=== PATIENT | female | born 1960 | race Hispanic/Latino ===

== ENCOUNTER → 2018-04-01 | Outpatient (CLI) | payer OTHER ==
--- NOTE | 2018-04-04 15:32 | Diagnostic Imaging Report ---
#[id number] - [id number] #BILATERAL DIGITAL DIAGNOSTIC MAMMOGRAM WITH CAD: 04/01/2018 Comparison is made to exams dated: 09/24/2017 mammogram, 01/28/2017 mammogram and 01/08/2017 mammogram - [facility]. Current study contains 8 films. There are scattered fibroglandular elements in both breasts. Current study was also evaluated with a Computer Aided Detection (CAD) system. The clusters of microcalcification in the left breast do not appear significantly changed. Again noted is bilateral vascular calcifications and a biopsy marker in the left breast. Stable calcification in the right breast again noted. IMPRESSION: PROBABLY BENIGN A follow-up left breast mammogram in 6 months is recommended to demonstrate stability. The patient has been or will be notified of the results. Dm Townsend Jr., D.O. cw/:04/01/2018 15:00:56 Fire Operations Forester: Isabelle FERMIN)(Yordan), [facility] letter sent: Followup Recommended Mammogram BI-RADS: 3 Probably benign
== END ==
LOC: MAMMO 09:41
PROVIDERS: ATTEND Internal Medicine
DX: N64.59 Other signs and symptoms in breast (principal)
CPT/HCPCS: 77066

== ENCOUNTER → 2018-05-20 | Emergency (ER) | payer OTHER ==
[~2018-05-20] VITALS: Ht 154.9 cm; Wt 74.8 kg
[~2018-05-20] MED LIST: ASPIRIN 81 MG CHEW TAB PO STA; BELLADONNA ALK/PHENOBARBITAL 5 ML UDC ONE; BELLADONNA ALK/PHENOBARBITAL 5 ML UDC PO ONE; MAGNESIUM/ALUMINUM/SIMETHICONE 30 ML UDC ONE; MAGNESIUM/ALUMINUM/SIMETHICONE 30 ML UDC PO ONE
[2018-05-20 18:56] LABS: BASOPHILS % 0.4 % (0.0-1.0); EOSINOPHILS # (AUTO) 0.2 (0.0-0.4); EOSINOPHILS % 2.9 % (0.0-6.0); HEMOGLOBIN 13.5 g/dL (12.0-16.0); LYMPHOCYTES # (AUTO) 3.5 (1.0-3.2); LYMPHOCYTES % 42.6 % (18.0-39.1); MEAN CORPUSCULAR HEMOGLOBIN 31.1 pg (28-32); MEAN CORPUSCULAR HGB CONC 33.8 g/dL (31-35); MEAN CORPUSCULAR VOLUME 92.2 fL (81-99); MONOCYTES # (AUTO) 0.6 (0.2-0.8); MONOCYTES % 7.5 % (4.4-11.3); NEUTROPHILS # (AUTO) 3.8 (2.1-6.9); NEUTROPHILS % 46.2 % (38.7-80.0); PLATELET COUNT 263 x10e3/uL (140-360); RED BLOOD COUNT 4.34 x10e6/uL (3.6-5.1); RED CELL DISTRIBUTION WIDTH 12.8 % (11.7-14.4)
[2018-05-20 19:04] LABS: CLARITY,URINE SL CLOUDY (CLEAR); COLOR,URINE YELLOW (YELLOW)
[2018-05-20 19:05] LABS: BILIRUBIN,URINE NEGATIVE (NEGATIVE); KETONES,URINE NEGATIVE (NEGATIVE); LEUKOCYTE ESTERASE ,URINE NEGATIVE (NEGATIVE); NITRITE,URINE NEGATIVE (NEGATIVE); PROTEIN,URINE DIPSTICK NEGATIVE (NEGATIVE); URINE UROBILINOGEN 0.2 mg/dL (0.2 - 1)
[2018-05-20 19:12] LABS: INR 1.02; PROTHROMBIN TIME 12.6 seconds (11.9-14.5)
[2018-05-20 19:13] LABS: PARTIAL THROMBOPLASTIN TIME 27.9 seconds (23.8-35.5)
[2018-05-20 19:14] LABS: EPITHELIAL CELLS,URINE RARE /LPF; RBC,URINE 0-5 /HPF (0-5)
[2018-05-20 19:16] LABS: ALANINE AMINOTRANSFERASE 42 IU/L (0-55); ALBUMIN 3.8 g/dL (3.5-5.0); ALBUMIN/GLOBULIN RATIO 1.1 (0.8-2.0); ALKALINE PHOSPHATASE 64 IU/L (40-150); BLOOD UREA NITROGEN 9 mg/dL (7-26); BUN/CREATININE RATIO 11 (6-25); CALCIUM 9.2 mg/dL (8.4-10.2); CARBON DIOXIDE 22 mmol/L (22-29); CHLORIDE 104 mmol/L (98-107); CREATINE KINASE 142 IU/L (29-168); CREATININE, SERUM 0.79 mg/dL (0.57-1.11); EST GLOMERULAR FILTRATION RATE > 60 ML/MIN (60-); GLUCOSE 103 mg/dL (74-118); SODIUM 138 mmol/L (136-145)
[2018-05-20 22:40] VITALS: BP 149/99
--- NOTE | 2018-05-20 22:44 | Diagnostic Imaging Report ---
EXAM: Chest x-ray, AP 1 view INDICATION: Chest pressure COMPARISON: None FINDINGS: LINES/TUBES: None LUNGS: No consolidations or edema. PLEURA: No effusions or pneumothorax. HEART AND MEDIASTINUM: Normal size and contour. BONES AND SOFT TISSUES: No acute findings. IMPRESSION: No acute thoracic abnormality. This study was originally dictated as a preliminary report May 20, 2018 at 9:56 PM secondary to technical problems transferring the image. Signed by: Dr. Roxi Watson M.D. on 05/20/2018 10:41 PM
== END | disposition home or self-care (01) ==
LOC: ER 18:14
DX: R07.89 Other chest pain (principal); R06.02 Shortness of breath; K21.9 Gastro-esophageal reflux disease without esophagitis
CPT/HCPCS: 36415; 71045; 80053; 81001; 82550; 82553; 83880; 84484; 85025; 85379; 85610; 85730; 93005; 99284

== ENCOUNTER → 2018-10-14 | Outpatient (CLI) | payer OTHER ==
--- NOTE | 2018-10-18 08:15 | Diagnostic Imaging Report ---
#[id number] - [id number] #UNILATERAL LEFT DIGITAL DIAGNOSTIC MAMMOGRAM WITH CAD SHORT-TERM FOLLOW-UP: 10/14/2018 Comparison is made to exams dated: 04/01/2018 mammogram, 09/24/2017 mammogram, 01/28/2017 mammogram and 01/08/2017 mammogram - [facility]. Current study contains 5 films. There are scattered fibroglandular elements in the left breast. Current study was also evaluated with a Computer Aided Detection (CAD) system. The clusters of microcalcifications in the left breast appear unchanged. Biopsy clip also again noted. No significant masses or other findings are seen in the breast. IMPRESSION: PROBABLY BENIGN A follow-up bilateral mammogram in 6 months is recommended to demonstrate stability on the left with a screening due on the right side. The patient has been or will be notified of the results. Dm Townsend Jr., D.O. cw/:10/17/2018 14:42:02 Mobile Home Installer: Isabelle QIU(Leonardo)(Yordan), [facility] letter sent: Followup Recommended Mammogram BI-RADS: 3 Probably benign
== END ==
LOC: MAMMO 13:50
PROVIDERS: ATTEND Internal Medicine
DX: N64.59 Other signs and symptoms in breast (principal)

== ENCOUNTER → 2019-06-16 | Outpatient (CLI) | payer OTHER ==
--- NOTE | 2019-06-28 08:44 | Diagnostic Imaging Report ---
#[id number] - [id number] #BILATERAL DIGITAL SCREENING MAMMOGRAM WITH CAD: 06/16/2019 CLINICAL: Routine screening. Comparison is made to exams dated: 10/14/2018 mammogram, 04/01/2018 mammogram, 09/24/2017 mammogram, 01/28/2017 mammogram and 01/08/2017 mammogram - [facility]. Current study contains 4 films. There are scattered fibroglandular elements in both breasts. Current study was also evaluated with a Computer Aided Detection (CAD) system. There are benign vascular calcifications in both breasts. Stable benign appearing calcifications are noted bilaterally. A clip is noted in the left breast. No significant masses, calcifications, or other findings are seen in either breast. IMPRESSION: BENIGN There is no mammographic evidence of malignancy. A 1 year screening mammogram is recommended. The patient will be notified by letter of the results. DUSTIN ARTHUR M.D. ct/penrad:06/27/2019 09:37:15 Personnel Records Clerk: Isabelle QIU(Leonardo)(M), [facility] letter sent: Normal Exam Mammogram BI-RADS: 2 Benign
== END ==
LOC: MAMMO 11:39
PROVIDERS: ATTEND Internal Medicine
DX: Z12.31 Encounter for screening mammogram for malignant neoplasm of breast (principal)
CPT/HCPCS: 77067

== ENCOUNTER → 2020-06-28 | Outpatient (CLI) | payer OTHER | LOC: MAMMO 13:16 | PROVIDERS: ATTEND Internal Medicine | DX: Z12.31 Encounter for screening mammogram for malignant neoplasm of breast (principal) | CPT/HCPCS: 77067 ==

== ENCOUNTER → 2022-08-14 | Outpatient (CLI) | payer OTHER | LOC: MAMMO 10:38 | PROVIDERS: ATTEND Internal Medicine | DX: Z12.31 Encounter for screening mammogram for malignant neoplasm of breast (principal) | CPT/HCPCS: 77067 ==